=== PATIENT | female | born 1960 | race African-American/Black ===

== ENCOUNTER 2025-04-24 08:42 | Observation (INO) ==
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
[2025-04-24] MEDS: ONDANSETRON INJ 2 MG/ML 2 ML VIAL IV STA (09:21)
[2025-04-24] MEDS: MoRPHine SULFATE 4 MG/ML 1 ML CARP\\VIAL IV STA (09:21)
[2025-04-24 09:23] LABS: Hematocrit (blood only) 40.5 % (37.0-47.0); Hemoglobin 13.2 g/dl (12.0-16.0); Immature Granulocytes # (auto) 0.01 K/uL (0.01-0.20); Immature Granulocytes % (auto) 0.3 %; Mean Corpuscular Hemoglobin 29.6 pg (25.0-34.0); Mean Corpuscular Volume 90.8 fL (80.0-100.0); Platelet Count 227 K/uL (130-400); RDW Standard Deviation 47.5 fL (36.4-46.3); Red Blood Count 4.46 M/uL (4.20-5.40); White Blood Count 3.81 K/ul (4.8-10.8)
--- NOTE | 2025-04-24 09:34 | XRay Report ---
XR chest 1V portable CLINICAL HISTORY: Chest pain, nonspecific COMPARISON STUDY: 03/01/2011 FINDINGS: There is mild cardiomegaly without pulmonary vascular congestion. Stable minimal scarring o r atelectasis in the lung bases. No new consolidation or pleural effusion seen. No pneumothorax. IMPRESSION: No acute findings. ACT 112: Negative or not required by law. Electronically signed by: Dejuan Salazar M.D. 04/24/2025 9:32 AM
[2025-04-24 09:41] LABS: Alanine Aminotransferase 13.0 U/L (7-52); Albumin Globulin Ratio 1.5 (0.9-2); Albumin Level 4.5 gm/dl (3.4-5.0); Alkaline Phosphatase 55.0 U/L (34-104); Anion Gap 7.0 (3-11); Bilirubin,Total 0.5 mg/dl (0.2-1.0); Blood Urea Nitrogen 7.0 mg/dl (6-23); Calcium 9.5 mg/dl (8.6-10.3); Carbon Dioxide 29.0 mmol/L (21-32); Chloride 104.0 mmol/L (98-107); Creatinine Clr Calc Pharmacy 80.3 ml/min; Globulin 3.1 gm/dl (2.5-4.0); Glucose 110.0 mg/dl (70-99(Fasting)); Lipase 19.0 U/L (11-82); Magnesium 1.8 mg/dl (1.7-2.4); Potassium 3.5 mmol/L (3.5-5.1); Sodium 140.0 mmol/L (136-145); Total Protein 7.6 gm/dl (6.0-8.3)
[2025-04-24 09:47] LABS: INR 1.0 (0.9-1.1); Prothrombin Time 10.9 Seconds (9.0-12.0)
[2025-04-24] MEDS: OPTIRAY 320 125ml IV ONE (10:01)
--- NOTE | 2025-04-24 10:44 | CT Scan Report ---
CT ANGIOGRAM OF THE CHEST CLINICAL HISTORY: Chest pain, nonspecific. Evaluate for pulmonary embolus. COMPARISON STUDY: Chest radiographs March 01, 2011 and chest radiograph performed earlier today. TECHNIQUE: Following the IV administration of 120 cc of Optiray 320, CT angiogram of the chest was pe rformed from the upper abdomen to the thoracic inlet utilizing the pulmonary embolus protocol. Images are reviewed in the axial, sagittal, and coronal planes. 3-D MIPS images are created and assessed. I V contrast was administered without complication. A dose lowering technique was utilized adhering to the principles of ALARA. CT DOSE: 252.75 mGy.cm FINDINGS: There is a subsegmental pulmonary embolus within the right lower lobe on image 40 of 223. N o additional pulmonary emboli are identified. The heart is moderately enlarged. There is no pericardi al effusion. No thoracic lymphadenopathy. No pneumothorax or pleural effusion. A 3 mm subpleural righ t upper lobe pulmonary nodule on image 108 of 223 is likely benign. Moderate lower lobe predominant g round glass opacities are present with subtle associated bronchiectasis. There are also mild ground g lass opacities within the right middle lobe and lingula. There is no honeycombing. IMPRESSION: 1. Subsegmental pulmonary embolus within the right lower lobe. No additional pulmonary emboli. 2. Lower lobe predominant groundglass opacities with mild bronchiectasis. No honeycombing. A chronic etiology is favored and the appearance raises the possibility of nonspecific interstitial pneumonia ( NSIP) pattern of interstitial lung disease. 3. Moderate cardiomegaly. ACT 112: Negative or not required by law. Electronically signed by: Memo Oh M.D. 04/24/2025 10:42 AM
[2025-04-24] MEDS ORDERED: HEPARIN 25000 UNIT/500 ML D5W 25,000 UNITS/500 ML BAG IV SCH (11:45)
[2025-04-24] MEDS: Heparin IV Adult Wt-Based Standard *NO* INITIAL Bolus Protocol IV STA (11:55)
[2025-04-24] MEDS ORDERED: ACETAMINOPHEN 325 MG TAB PO PRN (12:02)
--- NOTE | 2025-04-24 12:05 | Electrocardiogram Report ---
Test Reason : Blood Pressure : */* mmHG Vent. Rate : 92 BPM Atrial Rate : 92 BPM P-R Int : 162 ms QRS Dur : 84 ms QT Int : 380 ms P-R-T Axes : 65 31 -28 degrees QTcB Int : 469 ms Normal sinus rhythm Possible Left atrial enlargement Left ventricular hypertrophy with repolarization abnormality Abnormal ECG When compared with ECG of 12-Dec-2023 16:38, No significant change was found Confirmed by Oz Bettencourt ([id number]) on 04/24/2025 12:05:27 PM Referred By: REFERRED SELF Confirmed By: Oz Bettencourt
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
[2025-04-24] MEDS: HEPARIN SOD (PORCINE) 1000 UNIT/ML IV ONE (12:17)
[2025-04-24] MEDS: HEPARIN 25000 UNIT/500 ML D5W 25,000 UNITS/500 ML BAG IV SCH (12:18)
[2025-04-24] MEDS: Heparin IV Adult Wt-Based Standard w/ INITIAL Bolus Protocol IV STA (12:25)
[2025-04-24 12:59] LABS: Partial Thromboplastin Time 28 Seconds (21-31)
[2025-04-24 13:39] LABS: Chlamydia pneumoniae PCR Not Detected (NotDetected); Coronavirus 229E PCR Not Detected (NotDetected); Coronavirus CoV-2 (COVID19)PCR Not Detected (NotDetected); Coronavirus HKU1 PCR Not Detected (NotDetected); Coronavirus NL63 PCR Not Detected (NotDetected); Coronavirus OC43PCR Not Detected (NotDetected); Human Metapneumovirus PCR Not Detected (NotDetected); Parainfluenza Virus 1 PCR Not Detected (NotDetected); Parainfluenza Virus 2 PCR Not Detected (NotDetected); Parainfluenza Virus 3 PCR Not Detected (NotDetected); Parainfluenza Virus 4 PCR Not Detected (NotDetected); Respiratory Syncytial VirusPCR Not Detected (NotDetected); Rhinovirus/Enterovirus PCR Not Detected (NotDetected)
--- NOTE | 2025-04-24 13:53 | Ultrasound Report ---
ULTRASOUND BILATERAL LOWER EXTREMITY VENOUS CLINICAL HISTORY: Pulmonary embolus. COMPARISON STUDY: No priors TECHNIQUE: Real-time, grayscale, and color Doppler sonography of the deep veins of the right and left lower extremity was performed from the inguinal crease to the calf. Compression and augmentation wer e utilized. FINDINGS: There is no sonographic evidence of deep venous thrombosis identified in the right or left lower extremity. The common femoral, superficial femoral, and popliteal veins are patent and normally compressible bilaterally. The greater saphenous vein and the profunda femoris vein at the junction w ith the common femoral vein are clear in both legs. The visualized calf veins are patent bilaterally. IMPRESSION: There is no sonographic evidence of deep venous thrombosis identified in the right or lef t lower extremity. ACT 112: Negative or not required by law. Electronically signed by: Jonathan Dillon M.D. 04/24/2025 1:52 PM
[2025-04-24] MEDS ORDERED: CYCLOBENZAPRINE HCL 10 MG TAB PO PRN (14:07)
[2025-04-24 19:38] LABS: ANTI-Xa, UFH(UnfractionatedHep 1.10 IU/ml (0.3-0.7)
[2025-04-24] MEDS: LATANOPROST 0.005% OP SOLN 2.5 ML BTL OP SCH (20:44)
[2025-04-24] MEDS ORDERED: Nursing to Pharmacy Communication SCH (21:15)
[2025-04-24] MEDS: LOSARTAN POTASSIUM 50 MG TAB PO SCH (22:00)
[2025-04-24 22:17] LABS: ANTI-Xa, UFH(UnfractionatedHep 0.81 IU/ml (0.3-0.7)
[2025-04-24 23:54] LABS: ANTI-Xa, UFH(UnfractionatedHep 0.26 IU/ml (0.3-0.7)
[2025-04-25 06:38] LABS: Hematocrit (blood only) 45.0 % (37.0-47.0); Hemoglobin 14.4 g/dl (12.0-16.0); Mean Corpuscular Hemoglobin 29.3 pg (25.0-34.0); Mean Corpuscular Volume 91.5 fL (80.0-100.0); Platelet Count 228 K/uL (130-400); RDW Standard Deviation 47.5 fL (36.4-46.3); Red Blood Count 4.92 M/uL (4.20-5.40); White Blood Count 5.82 K/ul (4.8-10.8)
[2025-04-25 07:06] LABS: Albumin Level 4.4 gm/dl (3.4-5.0); Anion Gap 8.0 (3-11); Bilirubin,Total 0.6 mg/dl (0.2-1.0); Calcium 9.6 mg/dl (8.6-10.3); Carbon Dioxide 28.0 mmol/L (21-32); Chloride 104.0 mmol/L (98-107); Magnesium 1.9 mg/dl (1.7-2.4); Potassium 4.1 mmol/L (3.5-5.1); Sodium 140.0 mmol/L (136-145)
[2025-04-25 07:12] LABS: Alanine Aminotransferase 12.0 U/L (7-52); Albumin Globulin Ratio 1.4 (0.9-2); Alkaline Phosphatase 56.0 U/L (34-104); Blood Urea Nitrogen 6.0 mg/dl (6-23); Cholesterol 217.0 mg/dl (0-200); Creatinine Clr Calc Pharmacy 73.0 ml/min; Globulin 3.2 gm/dl (2.5-4.0); Glucose 84.0 mg/dl (70-99(Fasting)); HDL Cholesterol 59.0 mg/dl; Total Protein 7.6 gm/dl (6.0-8.3); Triglycerides 48.0 mg/dl (0-150)
[2025-04-25 07:19] LABS: Immature Granulocytes # (auto) 0.01 K/uL (0.01-0.20); Immature Granulocytes % (auto) 0.2 %
[2025-04-25 07:32] LABS: ANTI-Xa, UFH(UnfractionatedHep 0.58 IU/ml (0.3-0.7)
[2025-04-25 07:49] LABS: Thyroid Stimulating Hormone 4.822 uIu/ml (0.300-4.500)
[2025-04-25] MEDS: HYDROCODONE/ACETAMOPHEN 5/325MG TAB PO PRN (07:53)
[2025-04-25] MEDS ORDERED: LOSARTAN POTASSIUM 50 MG TAB PO SCH (09:00)
--- NOTE | 2025-04-25 13:36 | Hospitalist Progress Note ---
Date of Service April 25, 2025 Assessment & Plan (1) Pulmonary embolism: Plan: RLL echo wnl doubt the RLL PE is the cause of presenting symptoms as the symptoms are mainly on the left and in the back no symptoms from the PE and normal O2 sats cont heparin drip medeiros out PO Evelynis suspect this was provoked event given travel to [facility] several weeks ago dopplers b/l legs negative hypercoag panel sent by admission MD due to aunt having had VTE (2) Upper abdominal pain: Plan: presenting symptom upper epigastric region/LUQ with radiation to back LFTs/lipase wnl doubt the subsegmental RLL PE explains her pain will obtain CT a/p to rule out intra-abdominal pathology causing the pain if pain persists and if CT a/p is unrevealing consider gastritis vs PUD vs other (3) Abnormal chest CT: Plan: b/l ground glass opacities uncertain if acute vs chronic with low-grade fever today of 37.7, presenting symptoms, recent travel, etc will Rx empirically for pneumonia start levaquin 750mg daily x 7 days BioFire panel negative (4) Bronchiectasis: Plan: as seen on Chest CT due to chronic THC use ? no symptoms from such o2 sats wnl needs THC cessation (5) Chest pain: Plan: troponin x 3 negative echo with normal LV function & normal LV wall motion PE is in a subsegmental RLL artery - doubt it caused her chest symptoms musculoskeletal due to heavy lifting recently? due to atypical pneumonia given the chest CT opacities?? (6) Hypertension: Plan: cont losartan (7) History of Lyme disease: Plan: several years ago s/p Rx at that time (8) Leukopenia: Plan: very mild, but improved today with WBCs of 5 follow (9) Marijuana use: Plan: daily cause of bronchiectasis and other chest CT findings? teen counselor to quit Admission and Anticipated Discharge Date Admission Date: April 24, 2025 Subjective although patient had low-grade fever this am she did not notice such had no subjective fever or chills she had a lot of blankets on the bed at the time of the low-grade fever and thinks the fever was from the blankets denies cough denies dyspnea or SARGENT no sick contacts at home NO right-sided pleuritic pain pain that brought her to the hospital was in the midline just below the sternum and radiates THRU to the back she also had radiation of pain to the LUQ and left back NO pain with eating no vomiting she was doing a lot of manual labor at her home late last week and thinks some of her pain could be from such Review of Systems Review of Systems: CV - no substernal pain, no worsening of chest discomfort with laying flat, no edema of legs pulm - no dyspnea or SARGENT GI - no vomiting Physical Exam Physical Exam: gen - NAD, looks well neck - no JVD, ?lymph node angle of L jaw - about 1.5cm in size, very firm mouth - MMM heart - RRR, s1 s2, no murmur lungs - CTA b/l except mild faint rales bases abd - soft, mildly tender subxiphoid process region and LUQ, BS+, no HSM, no flank tenderness b/l ext - no edema, pulses 2+ b/l chest - no reproducible chest wall tenderness to palpation Results & Data Results & Data Vital Signs (Past 12 Hours) Vital Signs Temp Pulse Pulse Resp BP Pulse Ox O2 Del Method 04/25/25 11:21 36.6 C 81 20 154/92 H 98 Room Air 04/25/25 07:49 37.7 C H 84 20 146/84 H 98 Room Air 04/25/25 07:43 80 04/25/25 02:29 36.6 C 85 18 151/88 H 99 Room Air Laboratory Results Laboratory Results - last 48 hr 04/24/25 04/24/25 04/24/25 08:59 12:20 18:21 WBC RBC Hgb Hct MCV MCH MCHC RDW Std Deviation RDW Coeff of Wilian Plt Count MPV Immature Gran % (Auto) Neut % (Auto) Lymph % (Auto) [place] % (Auto) Eos % (Auto) Baso % (Auto) Neut # (Auto) Lymph # (Auto) [place] # (Auto) Eos # (Auto) Baso # (Auto) Immature Gran # (Auto) PT 10.9 INR 1.0 APTT 28 PTT Ratio 1.0 LA PTT Screen Cancelled Protein C Activity Cancelled APC Resistance Cancelled Protein S Activity Cancelled Antithrombin III Activ Cancelled Heparin Anti-Xa, Unfract 1.10 H* Factor V Leiden Mutat Cancelled Factor V Leiden Interp Cancelled Sodium 140 Potassium 3.5 Chloride 104 Carbon Dioxide 29 Anion Gap 7 BUN 7 Creatinine 0.69 Est Cr Clr Drug Dosing 80.3 eGFR 96.25 BUN/Creatinine Ratio 10.1 Glucose 110 H Calcium 9.5 Magnesium 1.8 Total Bilirubin 0.5 AST 24 ALT 13 Alkaline Phosphatase 55 Troponin I High Sens 4.8 6.2 C-Reactive Protein Total Protein 7.6 Albumin 4.5 Globulin 3.1 Albumin/Globulin Ratio 1.5 Triglycerides Cholesterol LDL Cholesterol, Calc VLDL Cholesterol, Calc HDL Cholesterol Cholesterol/HDL Ratio Lipase 19 TSH Free T4 Beta-2-GPI IgG Ab Cancelled Beta-2-GPI IgA Ab Cancelled Beta-2-GPI IgM Ab Cancelled Anti-Cardiolipin IgG Ab Cancelled Anti-Cardiolipin IgA Ab Cancelled Anti-Cardiolipin IgM Ab Cancelled Adenovirus (PCR) B. pertussis DNA (PCR) B.parapertussis DNA PCR C. pneumoniae DNA (PCR) Coronavirus OC43 (PCR) Coronavirus HKU1 (PCR) Coronavirus 229E (PCR) SARS-CoV-2 (PCR) Coronavirus NL63 (PCR) Human Metapneumovir PCR Influenza Type A (PCR) Influenza Type B (PCR) M. pneumoniae (PCR) Parainfluenza 1 (PCR) Parainfluenza 2 (PCR) Parainfluenza 3 (PCR) Parainfluenza 4 (PCR) RSV (PCR) Entero/Rhino (PCR) Prothrombin Gene Mutate Cancelled Prothromb Gene Comment Cancelled 04/24/25 04/24/25 04/24/25 20:29 23:00 Unknown WBC RBC Hgb Hct MCV MCH MCHC RDW Std Deviation RDW Coeff of Wilian Plt Count MPV Immature Gran % (Auto) Neut % (Auto) Lymph % (Auto) [place] % (Auto) Eos % (Auto) Baso % (Auto) Neut # (Auto) Lymph # (Auto) [place] # (Auto) Eos # (Auto) Baso # (Auto) Immature Gran # (Auto) PT INR APTT PTT Ratio LA PTT Screen Protein C Activity APC Resistance Protein S Activity Antithrombin III Activ Heparin Anti-Xa, Unfract 0.81 H* 0.26 L Factor V Leiden Mutat Factor V Leiden Interp Sodium Potassium Chloride Carbon Dioxide Anion Gap BUN Creatinine Est Cr Clr Drug Dosing eGFR BUN/Creatinine Ratio Glucose Calcium Magnesium Total Bilirubin AST ALT Alkaline Phosphatase Troponin I High Sens C-Reactive Protein Total Protein Albumin Globulin Albumin/Globulin Ratio Triglycerides Cholesterol LDL Cholesterol, Calc VLDL Cholesterol, Calc HDL Cholesterol Cholesterol/HDL Ratio Lipase TSH Free T4 Beta-2-GPI IgG Ab Beta-2-GPI IgA Ab Beta-2-GPI IgM Ab Anti-Cardiolipin IgG Ab Anti-Cardiolipin IgA Ab Anti-Cardiolipin IgM Ab Adenovirus (PCR) Not Detected B. pertussis DNA (PCR) Not Detected B.parapertussis DNA PCR Not Detected C. pneumoniae DNA (PCR) Not Detected Coronavirus OC43 (PCR) Not Detected Coronavirus HKU1 (PCR) Not Detected Coronavirus 229E (PCR) Not Detected SARS-CoV-2 (PCR) Not Detected Coronavirus NL63 (PCR) Not Detected Human Metapneumovir PCR Not Detected Influenza Type A (PCR) Not Detected Influenza Type B (PCR) Not Detected M. pneumoniae (PCR) Not Detected Parainfluenza 1 (PCR) Not Detected Parainfluenza 2 (PCR) Not Detected Parainfluenza 3 (PCR) Not Detected Parainfluenza 4 (PCR) Not Detected RSV (PCR) Not Detected Entero/Rhino (PCR) Not Detected Prothrombin Gene Mutate Prothromb Gene Comment 04/25/25 04/25/25 06:11 09:13 WBC 5.82 RBC 4.92 Hgb 14.4 Hct 45.0 MCV 91.5 MCH 29.3 MCHC 32.0 RDW Std Deviation 47.5 H RDW Coeff of Wilian 14.1 Plt Count 228 MPV 10.5 Immature Gran % (Auto) 0.2 Neut % (Auto) 33.2 Lymph % (Auto) 56.0 [place] % (Auto) 7.7 Eos % (Auto) 2.4 Baso % (Auto) 0.5 Neut # (Auto) 1.93 Lymph # (Auto) 3.26 [place] # (Auto) 0.45 Eos # (Auto) 0.14 Baso # (Auto) 0.03 Immature Gran # (Auto) 0.01 PT INR APTT PTT Ratio LA PTT Screen Protein C Activity APC Resistance Protein S Activity Antithrombin III Activ Heparin Anti-Xa, Unfract 0.58 Factor V Leiden Mutat Factor V Leiden Interp Sodium 140 Potassium 4.1 Chloride 104 Carbon Dioxide 28 Anion Gap 8 BUN 6 Creatinine 0.74 Est Cr Clr Drug Dosing 73.0 eGFR 89.73 BUN/Creatinine Ratio 8.1 L Glucose 84 Calcium 9.6 Magnesium 1.9 Total Bilirubin 0.6 AST 24 ALT 12 Alkaline Phosphatase 56 Troponin I High Sens 5.1 C-Reactive Protein < 0.50 Total Protein 7.6 Albumin 4.4 Globulin 3.2 Albumin/Globulin Ratio 1.4 Triglycerides 48 Cholesterol 217 H LDL Cholesterol, Calc 148 VLDL Cholesterol, Calc 10 HDL Cholesterol 59 Cholesterol/HDL Ratio 3.7 Lipase TSH 4.822 H Free T4 0.89 Beta-2-GPI IgG Ab Beta-2-GPI IgA Ab Beta-2-GPI IgM Ab Anti-Cardiolipin IgG Ab Anti-Cardiolipin IgA Ab Anti-Cardiolipin IgM Ab Adenovirus (PCR) B. pertussis DNA (PCR) B.parapertussis DNA PCR C. pneumoniae DNA (PCR) Coronavirus OC43 (PCR) Coronavirus HKU1 (PCR) Coronavirus 229E (PCR) SARS-CoV-2 (PCR) Coronavirus NL63 (PCR) Human Metapneumovir PCR Influenza Type A (PCR) Influenza Type B (PCR) M. pneumoniae (PCR) Parainfluenza 1 (PCR) Parainfluenza 2 (PCR) Parainfluenza 3 (PCR) Parainfluenza 4 (PCR) RSV (PCR) Entero/Rhino (PCR) Prothrombin Gene Mutate Prothromb Gene Comment PG Care Time/CCT Total # of Minutes Spent Total Time Spent with Patient: Total time spent is greater than 50% in coordination of care (as documented) at patient's floor/unit and/or counseling patient: Coding Level of Care Code 81850 SUB INP/OBS CARE 3/50MIN Diagnoses Pulmonary embolism I26.99 Upper abdominal pain R10.[address] R93.89 Bronchiectasis J47.9 Chest pain R07.9 Hypertension I10 History of Lyme disease Z86.19 Leukopenia D72.819 Marijuana use F12.90
[2025-04-25] MEDS: OPTIRAY 320 100ml IV ONE (14:40)
--- NOTE | 2025-04-25 14:56 | CT Scan Report ---
CT SCAN OF THE ABDOMEN AND PELVIS WITH IV CONTRAST CLINICAL HISTORY: Left upper quadrant abdominal pain. COMPARISON STUDY: No priors. TECHNIQUE: Following the IV administration of 94 cc of Optiray 320, CT scan of the abdomen and pelvi s is performed from the lung bases to the proximal femora. Images are reviewed in the axial, sagittal , and coronal planes. IV contrast was administered without complication. A dose lowering technique wa s utilized adhering to the principles of ALARA. CT DOSE: 446.47 mGy.cm FINDINGS: Lung bases: The heart is top normal in size and without pericardial effusion. There is bibasilar scar ring/atelectasis. Bronchiectasis is seen at the lung bases. No airspace consolidation typical for pne umonia or pleural effusion is identified. Liver: The contrast-enhanced liver is normal in size, contour, and attenuation. There is no intrahepa tic biliary ductal dilatation. The hepatic veins and portal veins are patent. Gallbladder: Unremarkable. Spleen: Normal in size and attenuation. Pancreas: Unremarkable. Adrenal glands: Unremarkable. Kidneys: The contrast enhanced kidneys are normal in size and without hydronephrosis. The kidneys enh ance symmetrically. Abdominal vasculature: The abdominal aorta is normal in course and caliber note mild to moderate athe rosclerotic calcification. Bowel: Mild fecal retention is seen throughout the colon. There is no bowel obstruction. There is mil d to moderate diverticulosis of the left colon without CT evidence of acute diverticulitis. The appen marshall is well-visualized and normal. Peritoneum: There is no intraperitoneal free air or abdominal ascites. Lymphadenopathy: None. Pelvic viscera: The bladder, uterus, and adnexa are normal as imaged. Skeletal structures: The skeletal structures are osteopenic. There is mild lumbosacral spondylosis. N o lytic or blastic lesions are seen. IMPRESSION: 1. No acute infectious or inflammatory findings are identified in the abdomen or pelvis. 2. Colonic diverticulosis without CT evidence of acute diverticulitis. 3. Additional findings as above. ACT 112: Negative or not required by law. Electronically signed by: Jonathan Dillon M.D. 04/25/2025 2:55 PM
[2025-04-25 21:15] LABS: T4 Free Thyroxine 0.89 ng/dl (0.61-1.60)
[2025-04-26 07:26] LABS: ANTI-Xa, UFH(UnfractionatedHep 0.70 IU/ml (0.3-0.7)
[2025-04-26 08:47] LABS: Anion Gap 10.0 (3-11); Blood Urea Nitrogen 5.0 mg/dl (6-23); Calcium 9.3 mg/dl (8.6-10.3); Carbon Dioxide 26.0 mmol/L (21-32); Chloride 103.0 mmol/L (98-107); Creatinine Clr Calc Pharmacy 69.9 ml/min; Glucose 86.0 mg/dl (70-99(Fasting)); Potassium 3.6 mmol/L (3.5-5.1); Sodium 139.0 mmol/L (136-145)
[2025-04-26] MEDS: APIXABAN 5 MG TABLET PO SCH (14:51)
[2025-04-26] MEDS: OPTIRAY 320 100ml IV ONE (15:58)
--- NOTE | 2025-04-26 17:13 | CT Scan Report ---
Clinical history: Lump in left neck Technique: Axial computed tomography images were obtained of the neck after the administration of intravenous contrast Findings: The salivary glands appear unremarkable. No adenopathy is seen. No definite soft tissue mass is identified and no fluid collection is noted. No foreign body is evident No tonsillar enlargement is seen. There is no sign of epiglottitis or prevertebral inflammation. No definite abnormality of the larynx is noted. There is a small nodule in the left thyroid lobe The jugular veins appear patent. No definite significant stenosis is seen of the carotid arteries. There is mild mucosal thickening in the right maxillary and left sphenoid sinuses. The mastoid air cells appear clear. 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 The lung apices appear unremarkable Impression: 1. No definite mass lesion 2. Mild chronic sinusitis 3. Small thyroid nodule, likely benign. A follow-up thyroid ultrasound could be obtained Electronically signed by Jeff Najera 04-26-2025 5:13 PM
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
[2025-04-27] MEDS: ONDANSETRON INJ 2 MG/ML 2 ML VIAL IV PRN (11:18)
[2025-04-27 15:21] VITALS: BP 163/95; PULSE 93; RESP 18; TEMP 98.1; O2SAT 97
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
--- NOTE | 2025-04-30 08:55 | Electrocardiogram Report ---
Test Reason : Blood Pressure : */* mmHG Vent. Rate : 105 BPM Atrial Rate : 105 BPM P-R Int : 152 ms QRS Dur : 86 ms QT Int : 384 ms P-R-T Axes : 71 8 8 degrees QTcB Int : 507 ms Sinus tachycardia Moderate voltage criteria for LVH, may be normal variant ( Sokolow-Nathan , [place] product ) Anterior infarct , age undetermined Prolonged QT Abnormal ECG When compared with ECG of 24-Apr-2025 08:54, No significant change Confirmed by Mason Frankel ([id number]) on 04/30/2025 8:55:17 AM Referred By: Jalyn Milian Confirmed By: Mason Frankel
[2025-05-01 07:32] LABS: Factor 5 Mutation NEGATIVE
== END 2025-04-27 17:40 | disposition home or self-care (01) | DRG 176 ==
LOC: 2S 08:42 → ED 08:42 → SUATTDRO 12:03 → 2S 13:25